=== PATIENT | male | born 1995 | race Caucasian/White ===

== ENCOUNTER 2016-12-24 17:20 | Emergency (ER) | payer SELFPAY ==
[~2016-12-24] VITALS: Ht 170.2 cm; Wt 68.0 kg
[2016-12-24 17:35] VITALS: BP 112/76
[2016-12-24] MEDS ORDERED: ALPR0.25 PO (18:01)
[2016-12-24] MEDS ORDERED: FLUO10CA26 PO (18:01)
[2016-12-24] MEDS ORDERED: ONDANSETRON HCL/PF 4 MG/2 ML VIAL IVP ONE (18:30)
[2016-12-24] MEDS ORDERED: MORPHINE SULFATE INJ 2 MG/ML DISP.SYRIN IV ONE (18:30)
[2016-12-24] MEDS ORDERED: MORPHINE SULFATE INJ 4 MG/ML DISP.SYRIN ONE (18:50)
[2016-12-24] MEDS ORDERED: ONDANSETRON HCL/PF 4 MG/2 ML VIAL ONE (18:50)
[2016-12-24] MEDS ORDERED: LORAZEPAM INJ 2 MG/ML VIAL ONE ×2 (18:51→22:11)
--- NOTE | 2016-12-24 18:51 | NUR ---
SEEN AND ASSESSED BY [employer] [facility] WITH ORDERS FOR PAIN MEDS AND ANTI-ANXIETY MEDICATIONS
[2016-12-24] MEDS ORDERED: LORAZEPAM INJ 2 MG/ML VIAL IV ONE ×2 (19:00→21:30)
[2016-12-24 19:09] LABS: BASOPHILS % (AUTO) 0.3 % (0.0-2.0); EOSINOPHILS # (AUTO) 0.1 /CMM (0.0-0.7); EOSINOPHILS % (AUTO) 1.1 % (0.0-6.0); HEMATOCRIT 36 % (39-51); HEMOGLOBIN 12.3 g/dL (13.5-17.5); LYMPHOCYTES # (AUTO) 0.6 /CMM (0.8-4.8); LYMPHOCYTES % (AUTO) 11.1 % (20.0-44.0); MEAN CORPUSCULAR HEMOGLOBIN 30 PG (26.0-33.0); MEAN CORPUSCULAR HGB CONC 34 g/dl (31.0-36.0); MEAN CORPUSCULAR VOLUME 88 fL (80-96); MONOCYTES # (AUTO) 0.6 /CMM (0.1-1.30); MONOCYTES % (AUTO) 10.1 % (2.0-12.0); NEUTROPHILS # (AUTO) 4.2 /CMM (1.8-8.9); NEUTROPHILS % (AUTO) 77.4 % (43.0-81.0); PLATELET COUNT (AUTO) 177 /CMM (150-450); RDW COEFFICIENT OF VARIATION 14.9 (11.5-15.0); RED BLOOD CELL COUNT(AUTO) 4.14 MIL/uL (4.5-6.0); WHITE BLOOD COUNT (AUTO) 5.5 K/uL (4.3-11.0)
--- NOTE | 2016-12-24 19:15 | NUR ---
PHILIPP DUDLEY ON THE PHONE WITH DR ABREU (GI)
[2016-12-24 19:19] LABS: CALCIUM, SERUM 8.6 mg/dL (8.5-10.1); CARBON DIOXIDE 31 mmol/L (21-32); CHLORIDE 102 mmol/L (98-107); CREATININE 0.9 mg/dL (0.6-1.3); GFR 105 mL/min (>60); GLUCOSE 91 mg/dL (74-106); POTASSIUM 4.3 mmol/L (3.5-5.1); SODIUM SERUM 138 mmol/L (136-145); UREA NITROGEN, BLOOD 17 mg/dL (7-18)
[2016-12-24 19:24] LABS: ALANINE AMINOTRANSFERASE 172 U/L (12-78); ALBUMIN 3.9 g/dL (3.4-5.0); ALKALINE PHOSPHATASE 96 U/L (46-116); ASPARTATE AMINOTRANSFERASE 62 U/L (15-37); BILIRUBIN,DIRECT 0.1 mg/dL (0.0-0.2); BILIRUBIN,TOTAL 0.3 mg/dL (0.2-1.0); TOTAL PROTEIN, SERUM 7.8 g/dL (6.4-8.2)
[2016-12-24 19:26] LABS: SALICYLATE 2.3 mg/dL (2.8-20.0)
[2016-12-24 19:27] LABS: ACETAMINOPHEN 0 ug/ml (10-30); ALCOHOL, BLOOD < 3 mg/dL (0-0)
[2016-12-24] MEDS ORDERED: MORPHINE SULFATE INJ 2 MG/ML DISP.SYRIN ONE (19:46)
[2016-12-24] MEDS ORDERED: MORPHINE SULFATE INJ 10 MG/ML DISP.SYRIN IV ONE (20:00)
[2016-12-24 20:29] LABS: APPEARANCE,URINE Clear (CLEAR); BILIRUBIN,URINE Negative (NEGATIVE); BLOOD, URINE Negative Ery/uL (NEGATIVE); COLOR,URINE Yellow (YELLOW); KETONES,URINE Negative (NEGATIVE); LEUKOCYTE ESTERASE ,URINE Negative (NEGATIVE); NITRITE, URINE Negative (NEGATIVE); PH,URINE 5.5 (5.0-8.0); PROTEIN,URINE Negative (NEGATIVE); UGLUCOSE Negative (NEGATIVE); UROBILINOGEN,URINE 0.2 EU/dL (0.2)
[2016-12-24] MEDS ORDERED: PANTOPRAZOLE 40 MG VIAL IV ONE (20:30)
[2016-12-24] MEDS ORDERED: LIDOCAINE VISCOUS 2% UD 15 ML UDC MM ONE ×2 (20:30→23:30)
[2016-12-24 20:36] LABS: CANNABINOID, URINE NEGATIVE (NEGATIVE); PHENCYCLIDINE SCREEN,URINE NEGATIVE (NEGATIVE)
[2016-12-24] MEDS ORDERED: PANTOPRAZOLE 40 MG VIAL ONE ×2 (20:43→22:10)
[2016-12-24] MEDS ORDERED: LIDOCAINE VISCOUS 2% UD 15 ML UDC ONE ×2 (20:44→23:13)
[2016-12-24] MEDS ORDERED: HYDROMORPHONE 1 MG/1 ML DISP.SYRIN IV ONE ×2 (21:30→23:30)
[2016-12-24] MEDS ORDERED: HYDROMORPHONE 1 MG/1 ML DISP.SYRIN ONE ×2 (22:10→23:13)
--- NOTE | 2016-12-24 22:54 | NUR ---
CALLED [facility] SPOKE WITH [facility] SEWER NOTIFIED HIM PATIENT REQUIRES HIGHER LEVEL OF CARE,.
--- NOTE | 2016-12-24 23:00 | NUR ---
CALLED [facility] FOR TRANSPORTATION GOING TO [facility] ER ETA 30 MIN, PATIENT WAS ACCEPTED BY DR NOLAND
--- NOTE | 2016-12-24 23:21 | NUR ---
PATIENT [facility] [place] REFERENCE # [id number]
--- NOTE | 2016-12-24 23:36 | NUR ---
[facility] AT BEDSIDE FOR TRANSPORT TO [facility]- ER.
== END 2016-12-25 00:12 | disposition short-term general hospital (02) ==
LOC: ER 17:25
DX: T18.198A Other foreign object in esophagus causing other injury, initial encounter (principal); R45.851 Suicidal ideations; D64.9 Anemia, unspecified; R74.0 Nonspecific elevation of levels of transaminase and lactic acid dehydrogenase [LDH]; F41.9 Anxiety disorder, unspecified; F17.210 Nicotine dependence, cigarettes, uncomplicated; Z88.8 Allergy status to other drugs, medicaments and biological substances; Z88.6 Allergy status to analgesic agent; X58.XXXA Exposure to other specified factors, initial encounter; Y92.89 Other specified places as the place of occurrence of the external cause; Y93.89 Activity, other specified; Y99.8 Other external cause status
CPT/HCPCS: 36415; 71010-TC; 74000-TC; 80048-TC; 80076-TC; 80305; 81000-TC; 85025-TC; A4606; C9113; G0480; G6039-TC; J1170; J2060; J2270; J2405; Z7610